=== PATIENT | male | born 1990 ===

== ENCOUNTER 2016-10-26 16:47 | Observation (INO) | payer BC ==
--- NOTE | 2016-10-26 17:21 | ED PDOC ---
HPI:STROKE - Time Time: 17:09 - Historian Historian: Patient - Chief Complaint Chief Complaint: Numbness - Onset Date: 10/26/16 Time: 07:00 (now approx 10hrs ago) - Timing Timing: Currently Symptomatic - Location Locate left: Upper extremity - Associated Symptoms Associated symptoms:: Palpitations - Exacerbated by Exacerbated by:: Nothing - Relieved by Relieved by:: Nothing - TPA Positive for Contraindication: Yes Reason tPA is not being Administered: symptoms ongoing 10+ hrs, only sensory symptoms currently - Notes: Notes:: 26yo male c/o numbness to left side of face/ head, left shoulder down to hand. Denies change in speech, vision, strength, coordination or headache. States did approx 1.5gm of cocaine overnight mixed with beer. NIHSS Stroke Scale - Date/Time Evaluation Performed Date Performed: 10/26/16 Time Performed: 17:01 When Was NIHSS Performed: Baseline - How Severe is the Stroke Level of Consciousness: 0=Alert LOC to Questions: 0=Both comments correct LOC to commands: 0=Obeys both correctly Best Gaze: 0=Normal Visual: 0=No visual loss Facial: 0=Normal Motor Arm - Left: 0=No drift Motor Arm - Right: 0=No drift Motor Leg - Left: 0=No drift Motor Leg - Right: 0=No drift Limb Ataxia: 0=Absent Sensory: 1=Mild to moderate loss Best Language: 0=No aphasia Dysarthia: 0=Normal articulation Extinction & Inattention (Neglect): 0=Normal, no object Score: 1 rTPA Inclusion/Exclusion - Refusal of Treatment Patient Refused Treatment: No - Inclusion Criteria for Altepase Patient is 18 years or Older: Yes The Clinical Diagnosis of Ischemic Stroke That is Causing a Potentially Disabling Neurological Deficit: Yes Time of Onset is Well Established to be Less Than 270 Minute Before Treatment Would Begin: No Risk/Benefit Discussed With Patient/Family Member Present: Yes - Warning to TPA With Conditions Following Conditions Weighed Against Anticipated Benefit: Yes Condition: Stroke Serevity Too Mild Past Medical History Reviewed: Historical Data, Nursing Documentation, Vital Signs Vital Signs: Last Vital Signs Temp 98.0 F 10/26/16 16:56 Pulse 88 10/26/16 16:56 Resp 26 H 10/26/16 16:56 BP 130/73 10/26/16 16:56 Pulse Ox 99 10/26/16 16:56 - Medical History PMH: No Chronic Diseases - Surgical History Surgical History: Hernia Repair Other surgeries: orthopedic procedures - Family History Family History: States: Unknown Family Hx - Living Arrangements Living Arrangements: With Family - Social History Current smoker - smoking cessation education provided: No Alcohol: Occasional Drugs: Cocaine (occassional) - Home Medications Home Medications: Ambulatory Orders Medication Instructions Recorded Rimforest-3 Fatty Acids [Fish Oil] 1 tab PO DAILY 10/26/16 Aspirin 325 mg PO DAILY #30 tab 10/27/16 - Allergies Allergies/Adverse Reactions: Allergies Allergy/AdvReac Type Severity Reaction Status Date / Time No Known Allergies Allergy Verified 06/14/16 06:50 Review of Systems ROS Statement: Except As Marked, All Systems Reviewed And Found Negative Constitutional: Negative for: Fever, Chills Cardiovascular: Positive for: Palpitations. Negative for: Chest Pain Respiratory: Negative for: Cough, Shortness of Breath Genitourinary Male: Negative for: Dysuria, Frequency Musculoskeletal: Negative for: Neck Pain, Shoulder Pain Skin: Negative for: Rash, Lesions Neurological: Positive for: Numbness, Dizziness. Negative for: Weakness, Confusion, Seizures, Headache Psych: Positive for: Anxiety. Negative for: Depression Physical Exam - Reviewed Nursing Documentation Reviewed: Yes Vital Signs Reviewed: Yes - Physical Exam Appears: Positive for: Well, Non-toxic, No Acute Distress Head Exam: Positive for: ATRAUMATIC, NORMAL INSPECTION, NORMOCEPHALIC Skin: Positive for: Normal Color, Warm, DRY Eye Exam: Positive for: EOMI, Normal appearance, PERRL Neck: Positive for: Normal, Painless ROM Cardiovascular/Chest: Positive for: Regular Rate, Rhythm. Negative for: Tachycardia Respiratory: Positive for: CNT, Normal Breath Sounds Pulses-Radial (L): 3+/4+ Pulses-Radial (R): 3+/4+ Gastrointestinal/Abdominal: Positive for: Bowel Sounds, Soft. 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 Negative for: Facial Droop - Laboratory Results Result Diagrams: 10/27/16 08:30 10/27/16 08:30 - ECG O2 Sat by Pulse Oximetry: 99 Medical Decision Making Medical Decision Making: Pt not candidate for code stroke as symptoms ongoing since 7am now 10+ hrs. CT report reviewed, no hemorrhage or abnormality Labs reviewed, +cocaine in Utox. Remains sinus rhythm. Given ativan for anxiolysis and cocaine antidote. ASA 325mg ordered. D/w Dr Brandon applications specialist neurology recommended Obs and will consult. Disposition - Clinical Impression Clinical Impression: Cocaine abuse, CVA (cerebral vascular accident) - Patient ED Disposition Is Patient to be Admitted: Yes Counseled Patient/Family Regarding: Studies Performed, Diagnosis, Need For Followup, Rx Given - Disposition Disposition: Routine/Home Disposition Time: 19:30 Condition: GOOD - Pt Status Changed To: Hospital Disposition Of: Observation
--- NOTE | 2016-10-26 17:36 | CT ---
PROCEDURE: CT HEAD WITHOUT CONTRAST. HISTORY: L arm numbness cocaine abuse COMPARISON: None available. TECHNIQUE: Axial computed tomography images were obtained through the head/brain without intravenous contrast. Radiation dose: Total exam DLP = 741 mGy-cm. This CT exam was performed using one or more of the following dose reduction techniques: Automated exposure control, adjustment of the mA and/or kV according to patient size, and/or use of iterative reconstruction technique. FINDINGS: HEMORRHAGE: No intracranial hemorrhage. BRAIN: No mass effect or edema. No atrophy or chronic microvascular ischemic changes. VENTRICLES: Unremarkable. No hydrocephalus. CALVARIUM: Unremarkable. PARANASAL SINUSES: Unremarkable as visualized. No significant inflammatory changes. MASTOID AIR CELLS: Unremarkable as visualized. No inflammatory changes. OTHER FINDINGS: None. IMPRESSION: Normal CT of the Head.
[2016-10-26 18:27] LABS: PARTIAL THROMBOPLASTIN TIME 26.4 SECONDS (23.3-32.5)
[2016-10-26 18:28] LABS: BASO % 0.3 % (0.0-2.0); EOS % 0.1 % (0.0-4.0); HEMATOCRIT 44.3 % (35.0-51.0); LYMPH # 1.9 K/uL (1.0-4.3); LYMPH % 15.8 % (20.0-40.0); MEAN CORPUSCULAR HEMOGLOBIN 29.9 pg (27.0-31.0); MEAN CORPUSCULAR HGB CONC 32.8 g/dL (33.0-37.0); MEAN PLATELET VOLUME 8.7 fl (7.2-11.7); MONO # 0.8 K/uL (0.0-0.8); MONO % 7.2 % (0.0-10.0); NEUT # 8.9 K/uL (1.8-7.0); NEUT % 76.6 % (50.0-75.0); RED CELL DISTRIBUTION WIDTH 13.4 % (11.5-14.5); WHITE BLOOD COUNT 11.7 K/uL (4.8-10.8)
[2016-10-26 18:29] LABS: ALB/GLOB RATIO 1.9 (1.0-2.1); ALCOHOL SERUM < 10 mg/dl (0-10); ALKALINE PHOSPHATASE 69 U/L (38-126); ALT/SGPT 56 U/L (21-72); AST/SGOT 49 U/L (17-59); BILIRUBIN,TOTAL 0.8 mg/dl (0.2-1.3); BLOOD UREA NITROGEN 9 mg/dl (9-20); CALCIUM 9.9 mg/dL (8.4-10.2); CARBON DIOXIDE 20 mmol/L (22-30); CHLORIDE 103 mmol/L (98-107); CHOLESTEROL 134 mg/dL (0-199); GFR AFRICAN-AMERICAN > 60; GLUCOSE,RANDOM 81 mg/dL (75-110); POTASSIUM 3.8 MMOL/L (3.6-5.0); SODIUM 138 mmol/l (132-148); TOTAL PROTEIN 7.5 G/DL (6.3-8.2)
[2016-10-26] MEDS ORDERED: Sodium Chloride 0.9% 1,000 ML IV STA (18:46)
--- NOTE | 2016-10-26 22:21 | RAD ---
HISTORY: L arm numbness COMPARISON: None available TECHNIQUE: Chest, one view. FINDINGS: LUNGS: No focal consolidation. Please note that chest x-ray has limited sensitivity for the detection of pulmonary masses. PLEURA: No significant pleural effusion identified. No definite pneumothorax . CARDIOVASCULAR: The cardiomediastinal silhouette appears within normal limits of size. OSSEOUS STRUCTURES: No acute osseous abnormality identified. VISUALIZED UPPER ABDOMEN: Unremarkable. OTHER FINDINGS: None. IMPRESSION: No focal consolidation, significant pleural effusion, or definite pneumothorax identified.
[2016-10-27] MEDS ORDERED: Enoxaparin 40 mg Syringe SC SCH (09:00)
[2016-10-27 09:17] LABS: MEAN CELL VOLUME 91.7 fl (80.0-94.0); MEAN CORPUSCULAR HEMOGLOBIN 30.5 pg (27.0-31.0); MEAN CORPUSCULAR HGB CONC 33.3 g/dL (33.0-37.0); RED CELL DISTRIBUTION WIDTH 13.2 % (11.5-14.5); WHITE BLOOD COUNT 6.8 K/uL (4.8-10.8)
[2016-10-27 09:41] LABS: ALKALINE PHOSPHATASE 56 U/L (38-126); ALT/SGPT 39 U/L (21-72); AST/SGOT 31 U/L (17-59); BILIRUBIN,TOTAL 0.7 mg/dl (0.2-1.3); BLOOD UREA NITROGEN 9 mg/dl (9-20); CALCIUM 8.9 mg/dL (8.4-10.2); CARBON DIOXIDE 25 mmol/L (22-30); CHLORIDE 108 mmol/L (98-107); CHOLESTEROL 95 mg/dL (0-199); GFR AFRICAN-AMERICAN > 60; GLUCOSE,RANDOM 104 mg/dL (75-110); POTASSIUM 4.4 MMOL/L (3.6-5.0); SODIUM 139 mmol/l (132-148); TOTAL PROTEIN 5.6 G/DL (6.3-8.2)
[2016-10-27 09:49] LABS: ALB/GLOB RATIO 1.5 (1.0-2.1)
[2016-10-27 09:56] LABS: T4 4.38 ug/dl (5.5-11.0)
[2016-10-27 10:10] LABS: THYROID STIMULATING HORMONE 1.43 mIU/ML (0.46-4.68)
--- NOTE | 2016-10-27 13:28 | CARD ---
APPROVED REPORT EKG Measurement Heart [id number] [id number] <Conclusion> Normal sinus rhythm Possible Left atrial enlargement Borderline ECG
--- NOTE | 2016-10-27 13:51 | CON ---
DATE: 10/27/2016 CHIEF COMPLAINT: Upper extremity numbness and palpitations. HISTORY OF PRESENT ILLNESS: This is a 26-year-old man with no significant past medical history excep t for a torn left shoulder, who presents to the hospital because of left upper extremity numbness and palpitations. Symptoms are going on more than 10 hours. No motor deficits and he admitted to doing 1.5 grams of cocaine overnight mixed with beer. He denies any change in sense of vision, taste or s amara, any weakness in the extremities or any headaches or any difficulty with coordination. He is wa lking around without any difficulty. His paresthesias are slightly reduced. He is on aspirin 81 mg p.o. daily. Case discussed with the father at bedside as well as the patient. 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 Neurological examination is intact except for subjective left upper extremity numb ness. PAST MEDICAL HISTORY: Left torn shoulder. SOCIAL HISTORY: Social ETOH use, history of cocaine use on 10/25/2016. FAMILY HISTORY: Noncontributory. ALLERGIES: No known drug allergies. MEDICATIONS: Reviewed via nurse's reconciliation sheet. LABORATORY DATA: U-tox is positive for cocaine. Chemistry: Sodium is 139, potassium 4, chloride of 108, carbon dioxide 25, BUN of 9, creatinine 0.9, random glucose 104. ASSESSMENT AND PLAN: This is a 26-year-old man with a history of a left torn shoulder, history of s teroid injections such as testosterone, came in with left upper extremity numbness, palpitations and admitted to using 1.5 grams of cocaine mixed with beer. His neurological exam is nonfocal. He denie s any headaches at this time. His left upper extremity subjective numbness is secondary to vasospasm from cocaine. At this time, he is neurologically intact. He can be discharged home on aspirin 325 mg p.o. daily and can follow up with me in 1 week. I advised on cocaine cessation, ETOH cessation as well as steroid injection cessation and to avoid any stimulants for 1-1/2 weeks. At this time, cont inue with current present medical management. Thank you for this consult. Shilo Brandon MD cc: [phone] TT: 10/27/2016 13:50:52 Confirmation # [id number] Dictation # [id number] tn
[2016-10-27 15:56] VITALS: BP 105/58; PULSE 73; RESP 16; TEMP 98
[2016-10-27 21:10] LABS: FOLATE 19.1 ng/mL
--- NOTE | 2016-10-29 07:35 | HP ---
The patient seen and examined. CHIEF COMPLAINT: Upper extremity numbness and palpitations. HISTORY OF PRESENT ILLNESS: This is a 26-year-old man without significant past medical history, who has a history of alcohol and cocaine abuse and was using cocaine yesterday and suddenly started feeli ng numbness and of the left upper extremity with palpitations. The patient was brought to the Emergency Room and was admitted for further management. REVIEW OF SYSTEMS: Positive for palpitations, numbness of the left upper extremity. Review of syste ms otherwise is negative for headache, dizziness, syncope, loss of consciousness, chest pain, shortne ss of breath, nausea, vomiting, diarrhea, constipation, any new joint or extremity pain. Review of s ystems of all other organ systems is unremarkable. PAST MEDICAL HISTORY: Is not significant. PAST SURGICAL HISTORY: Remarkable for left shoulder. PERSONAL HISTORY: The patient has history of alcohol and cocaine abuse. FAMILY HISTORY: Noncontributory. MEDICATIONS: The patient is not taking any medication other than [id number] supplements. ALLERGIES: The patient is not allergic to any medications. FAMILY HISTORY: Noncontributory. PHYSICAL EXAMINATION: GENERAL: Well-built, well-nourished 26-year-old male in no acute distress. VITAL SIGNS: Temperature 98, pulse 55, respirations 18, blood pressure 96/ . No orthostatic mikey nges. HEENT: Pupils reacting to light. No nystagmus. Normocephalic, atraumatic skull. NECK: No JVD, no thyromegaly, no lymphadenopathy. HEART: S1, S2 normal, regular. No significant murmur, gallop or rub is heard. LUNGS: Shows good bilateral air exchange. No rales or rhonchi. ABDOMEN: Soft, nontender, no organomegaly, no fluid. Bowel sounds are plus. EXTREMITIES: No edema, no calf swelling, no tenderness, no acute ischemia. CENTRAL NERVOUS SYSTEM: The patient is alert, awake, oriented x 3. There is no sign of any acute gr oss focal motor or sensory neurological deficits. DIAGNOSTIC DATA: Available diagnostic data reviewed. Telemetry monitoring does not reveal significa nt arrhythmias. WBC 6.8, hemoglobin 13.3, hematocrit 40.0, platelets 187. Sodium 139, potassium ___ __, chloride 108, bicarb 25. SMA-12 is essentially unremarkable. Urine toxicology is positive for c ocaine. Neurology consult noted and appreciated. CAT scan of head shows normal CAT scan. EKG is un remarkable. Chest x-ray is clear. ADMITTING IMPRESSION: Rule out cerebrovascular accident with cocaine abuse and alcohol abuse. PLAN: As ordered. Case and plan discussed with patient. The patient is medically stable to be disc harged. The patient was advised to follow up with family PCP and neurology. Plan is as asha marie Kingsley Asencio MD cc: [phone] TT: 10/27/2016 20:39:49 shan
[2016-11-07 15:19] VITALS: O2SAT 99
== END 2016-10-27 17:00 | disposition home or self-care (01) ==
LOC: H.ER 16:47 → H.ERHOLD 19:50 → H.TEL 21:14
PROVIDERS: ADMIT Internal Medicine; ATTEND Internal Medicine
DX: T40.5X1A Poisoning by cocaine, accidental (unintentional), initial encounter (principal); F10.10 Alcohol abuse, uncomplicated; F14.10 Cocaine abuse, uncomplicated; Y90.0 Blood alcohol level of less than 20 mg/100 ml; R20.0 Anesthesia of skin; R00.2 Palpitations
CPT/HCPCS: 36415; 70450; 71010; 80053; 80061; 82746; 82948; 83036; 84436; 84443; 84480; 84484; 85025; 85027; 85610; 85730; 86850; 86900; 93005; 96361; 96372; 96374; 99285; G0378; G0480; J1650; J2060; J7040

== ENCOUNTER 2017-06-28 07:12 | Observation (INO) | payer BC, OTHER ==
[2017-06-28] MEDS ORDERED: Sodium Chloride 0.9% 1,000 ML IV STA (07:38)
--- NOTE | 2017-06-28 07:45 | ED PDOC ---
HPI: SOB/CHF/COPD Time Seen by Provider: 06/28/17 07:34 Chief Complaint (Provider): Shortness of breath History Per: Patient History/Exam Limitations: no limitations Onset/Duration Of Symptoms: Hrs (this morning) Current Symptoms Are (Timing): Still Present Quality: Tightness Associated Symptoms: Other (left arm pain, and chest tightness) Additional Complaint(s): Azar Leahy is a 27 year old male, with no past medical history, who presents to the emergency department complaining of shortness of breath associated with chest tightness and left arm pain onset since this morning. Patient admits to doing cocaine last night as well as alcohol. Patient reports a similar event secondary to cocaine ingestion. He denies any suicidal or homicidal ideation. No further medical complaints. PMD: None provided. Past Medical History Reviewed: Historical Data, Nursing Documentation, Vital Signs Vital Signs: Last Vital Signs Temp 98.9 F 06/28/17 07:36 Pulse 117 H 06/28/17 07:36 Resp 18 06/28/17 07:48 BP 134/71 06/28/17 07:36 Pulse Ox 100 06/28/17 07:36 - Medical History PMH: No Chronic Diseases Denies: Chronic Kidney Disease - Surgical History Surgical History: Hernia Repair - Family History Family History: States: Unknown Family Hx - Social History Drugs: Cocaine - Allergies Allergies/Adverse Reactions: Allergies Allergy/AdvReac Type Severity Reaction Status Date / Time No Known Allergies Allergy Verified 06/14/16 06:50 Review of Systems ROS Statement: Except As Marked, All Systems Reviewed And Found Negative Cardiovascular: Positive for: Other (chest tightness) Respiratory: Positive for: Shortness of Breath Musculoskeletal: Positive for: Arm Pain (left) Psych: Negative for: Suicidal ideation (or homicidal ideation) Physical Exam - Reviewed Nursing Documentation Reviewed: Yes Vital Signs Reviewed: Yes - Physical Exam Head Exam: Positive for: ATRAUMATIC, NORMAL INSPECTION, NORMOCEPHALIC Skin: Positive for: Normal Color, Warm, Dry Eye Exam: Positive for: Normal appearance Neck: Positive for: Painless ROM Cardiovascular/Chest: Positive for: Tachycardia Respiratory: Positive for: Normal Breath Sounds (clear b/l). Negative for: Respiratory Distress Gastrointestinal/Abdominal: Positive for: Normal Exam, Soft. Negative for: Tenderness Extremity: Positive for: Normal ROM. Negative for: Tenderness, Deformity, Swelling Neurologic/Psych: Positive for: Alert, Oriented (x3). Negative for: Motor/ Sensory Deficits, Other (No focal deficits) - Laboratory Results Result Diagrams: 06/28/17 07:58 06/28/17 07:58 Medical Decision Making Medical Decision Making: Initial Plan: --EKG --Alcohol serum --Comp Metabolic Panel --Drug screen, urine --Troponin I --Urine dipstick --CBC w/ differential --Chest portable [RAD] --Aspirin 325 mg PO --Ativan 1 mg PO --Sodium Chloride 1,000 ml IV 100 mls/hr --reevaluation Scribe Attestation: Documented by Jorge Luis Tan, acting as a scribe for Adolfo Calderon MD Provider Scribe Attestation: All medical record entries made by the Scribe were at my direction and personally dictated by me. I have reviewed the chart and agree that the record accurately reflects my personal performance of the history, physical exam, medical decision making, and the department course for this patient. I have also personally directed, reviewed, and agree with the discharge instructions and disposition. Disposition - Clinical Impression Clinical Impression: Chest pain, Cocaine abuse - Patient ED Disposition Is Patient to be Admitted: Yes - Disposition Disposition Time: 08:42 Condition: FAIR - Pt Status Changed To: Hospital Disposition Of: Observation - POA Present On Arrival: None
[2017-06-28 08:09] LABS: BASO # 0.1 K/uL (0.0-0.2); BASO % 0.8 % (0.0-2.0); EOS % 0.1 % (0.0-4.0); HEMOGLOBIN 15.6 g/dL (12.0-18.0); LYMPH # 1.4 K/uL (1.0-4.3); LYMPH % 20.3 % (20.0-40.0); MEAN CELL VOLUME 86.9 fl (80.0-94.0); MEAN CORPUSCULAR HEMOGLOBIN 30.6 pg (27.0-31.0); MEAN CORPUSCULAR HGB CONC 35.2 g/dL (33.0-37.0); MEAN PLATELET VOLUME 9.2 fl (7.2-11.7); MONO # 0.4 K/uL (0.0-0.8); NEUT # 5.2 K/uL (1.8-7.0); NEUT % 73.8 % (50.0-75.0); RBC 5.11 Mil/uL (4.40-5.90); RED CELL DISTRIBUTION WIDTH 12.7 % (11.5-14.5)
[2017-06-28 08:15] LABS: ALB/GLOB RATIO 1.6 (1.0-2.1); ALBUMIN 4.9 g/dL (3.5-5.0); ALT/SGPT 39 U/L (21-72); AST/SGOT 28 U/L (17-59); BLOOD UREA NITROGEN 13 mg/dl (9-20); CALCIUM 10.2 mg/dL (8.4-10.2); GFR AFRICAN-AMERICAN > 60; GFR NON-AFRICAN AMERICAN > 60
[2017-06-28 10:01] LABS: BARBITURATES, UR NEGATIVE (NEGATIVE); BENZODIAZEPINES, UR NEGATIVE (NEGATIVE); OPIATES, UR NEGATIVE (NEGATIVE); PHENCYCLIDINE, UR NEGATIVE (NEGATIVE)
--- NOTE | 2017-06-28 11:08 | CP.PCM.CON ---
History of Present Illness - History of Present Illness History of Present Illness: 27 year old male, with no past medical history, who presents to the emergency department complaining of shortness of breath associated with chest numbness, no pain,since this morning after a night of drinking and snorting cocaine. Patient reports a similar event secondary to cocaine. EKG: normal Troponin: neg No PMH Past Patient History - Past Medical History & Family History Past Medical History?: Yes - Past Social History Drugs: Cocaine - CARDIAC Hx Cardiac Disorders: Yes Other/Comment: "leaky heart valve"as per pt's father - PULMONARY Hx Respiratory Disorders: No - NEUROLOGICAL Hx Neurological Disorder: No - HEENT Hx HEENT Problems: No - RENAL Hx Chronic Kidney Disease: No - ENDOCRINE/METABOLIC Hx Endocrine Disorders: No - HEMATOLOGICAL/ONCOLOGICAL Hx Blood Disorders: No - INTEGUMENTARY Hx Dermatological Problems: No - MUSCULOSKELETAL/RHEUMATOLOGICAL Hx Falls: No - GASTROINTESTINAL Hx Gastrointestinal Disorders: No - GENITOURINARY/GYNECOLOGICAL Hx Genitourinary Disorders: No - PSYCHIATRIC Hx Psychophysiologic Disorder: Yes Hx Substance Use: Yes - SURGICAL HISTORY Hx Surgeries: Yes Hx Herniorrhaphy: Yes Hx Musculoskeletal Surgery: Yes - ANESTHESIA Hx Anesthesia: Yes Hx Anesthesia Reactions: No Hx Malignant Hyperthermia: No Meds Allergies/Adverse Reactions: Allergies Allergy/AdvReac Type Severity Reaction Status Date / Time No Known Allergies Allergy Verified 06/14/16 06:50 - Medications Medications: Current Medications Sodium Chloride (Sodium Chloride 0.9%) 1,000 mls @ 100 mls/hr IV .Q10H STA Stop: 06/28/17 17:37 Last Admin: 06/28/17 07:51 Dose: 100 mls/hr Physical Exam - Constitutional Appears: Well - Head Exam Head Exam: NORMAL INSPECTION - Eye Exam Eye Exam: Normal appearance - ENT Exam ENT Exam: Normal Exam - Neck Exam Neck exam: Positive for: Normal Inspection - Respiratory Exam Respiratory Exam: NORMAL BREATHING PATTERN - Cardiovascular Exam Cardiovascular Exam: REGULAR RHYTHM - GI/Abdominal Exam GI & Abdominal Exam: Normal Bowel Sounds Results - Vital Signs Recent Vital Signs: Last Vital Signs Temp 98.4 F 06/28/17 09:08 Pulse 87 06/28/17 10:58 Resp 15 06/28/17 10:58 BP 110/61 06/28/17 10:58 Pulse Ox 99 06/28/17 10:58 - Labs Result Diagrams: 06/28/17 07:58 06/28/17 07:58 Labs: Laboratory Results - last 24 hr 06/28/17 06/28/17 06/28/17 07:58 07:58 09:13 WBC 7.0 RBC 5.11 Hgb 15.6 D Hct 44.4 MCV 86.9 D MCH 30.6 MCHC 35.2 RDW 12.7 Plt Count 195 MPV 9.2 Neut % (Auto) 73.8 Lymph % (Auto) 20.3 [place] % (Auto) 5.0 Eos % (Auto) 0.1 Baso % (Auto) 0.8 Neut # 5.2 Lymph # 1.4 [place] # 0.4 Eos # 0.0 Baso # 0.1 Sodium 142 Potassium 4.3 Chloride 103 Carbon Dioxide 21 L Anion Gap 22 H BUN 13 Creatinine 0.9 Est GFR ( Amer) > 60 Est GFR (Non-Af Amer) > 60 Random Glucose 118 H Calcium 10.2 Total Bilirubin 0.8 AST 28 ALT 39 Alkaline Phosphatase 87 Troponin I < 0.0120 Total Protein 7.9 Albumin 4.9 Globulin 3.0 Albumin/Globulin Ratio 1.6 Urine Opiates Screen Negative Urine Methadone Screen Negative Ur Barbiturates Screen Negative Ur Phencyclidine Scrn Negative Ur Amphetamines Screen Negative U Benzodiazepines Scrn Negative U Oth Cocaine Metabols Positive H U Cannabinoids Screen Negative Alcohol, Quantitative 62 H Assessment & Plan (1) Chest pain Assessment and Plan: Pt reports he did not have chest pain only numbness of his chest and shoulder all secondary to cocaine abuse pt may be discharged Status: Acute (2) Cocaine abuse Status: Acute
--- NOTE | 2017-06-28 11:19 | CARD ---
APPROVED REPORT EKG Measurement Heart [id number] <Conclusion> Sinus tachycardia Otherwise normal ECG
--- NOTE | 2017-06-28 12:00 | RAD ---
HISTORY: cough COMPARISON: Chest radiograph dated 10/26/2016. FINDINGS: LUNGS: No active pulmonary disease. PLEURA: No significant pleural effusion identified, no pneumothorax apparent. CARDIOVASCULAR: Normal. OSSEOUS STRUCTURES: No significant abnormalities. VISUALIZED UPPER ABDOMEN: Normal. OTHER FINDINGS: None. IMPRESSION: No active disease.
--- NOTE | 2017-06-28 13:31 | HP ---
HISTORY OF PRESENT ILLNESS: Mr. Leahy is a 27-year-old male who was admitted via the emergency room, complaining of chest pain, shortness of breath and numbness of the left side of the arm following alcohol and cocaine use. He had a similar episode once in the past. He presently is awake, alert, oriented. Denies any pain and feels better. PAST MEDICAL HISTORY: Apart from having similar episodes of chest pain in the past and numbness of the face is unremarkable. FAMILY HISTORY: Unremarkable. SOCIAL HISTORY: He does not smoke cigarettes, but uses cocaine and drinks alcohol. REVIEW OF SYSTEMS: Essentially unremarkable. PHYSICAL EXAMINATION: GENERAL: The patient is alert and oriented, appears to be comfortable at present. VITAL SIGNS: Blood pressure 110/61, pulse of 87, respiratory rate of 18 per minute, he is afebrile, O2 sat is 99% on room air. SKIN: Shows fair turgor. HEENT: Pupils equal and reactive to light and accommodation. Mouth shows fair hygiene. NECK: JVP flat. LUNGS: Clear. HEART: Regular. No murmurs or gallop. ABDOMEN: Soft, nontender. No organomegaly. EXTREMITIES: Show no edema or cyanosis. CENTRAL NERVOUS SYSTEM: Grossly intact. LABORATORY DATA: WBC 7.0, hemoglobin 15.6, platelet count 195,000. Sodium 142, potassium 4.3, BUN 13, creatinine 0.9, serum glucose 118. EKG, regular sinus rhythm. Troponin levels normal. Alcohol levels 62. The troponin is less than 0.012. IMPRESSION: Chest pains, probably secondary to cocaine use, alcohol use. PLAN: The patient advised alcohol abstinence. Plan will be to give him aspirin. Monitor on telemetry. Obtain cardiac enzymes x3 of 24-hour period. An EKG in the morning. Cardiac evaluation already completed. If clinically stable, we will discharge the patient in the a.m. Suraj Izaguirre MD
[2017-06-29 08:06] VITALS: BP 98/57; RESP 20; TEMP 97.9; O2SAT 99
--- NOTE | 2017-06-29 10:03 | CP.PCM.DIS ---
Provider - Provider Date of Admission: 06/28/17 07:41 Attending physician: Suraj Izaguirre MD Time Spent in preparation of Discharge (in minutes): 30 Diagnosis - Discharge Diagnosis (1) Alcohol abuse Status: Acute (2) Chest pain Status: Acute (3) Cocaine abuse Status: Acute Hospital Course - Lab Results Lab Results: Most Recent Lab Values WBC 7.0 K/uL (4.8-10.8) 06/28/17 07:58 RBC 5.11 Mil/uL (4.40-5.90) 06/28/17 07:58 Hgb 15.6 g/dL (12.0-18.0) D 06/28/17 07:58 Hct 44.4 % (35.0-51.0) 06/28/17 07:58 MCV 86.9 fl (80.0-94.0) D 06/28/17 07:58 MCH 30.6 pg (27.0-31.0) 06/28/17 07:58 MCHC 35.2 g/dL (33.0-37.0) 06/28/17 07:58 RDW 12.7 % (11.5-14.5) 06/28/17 07:58 Plt Count 195 K/uL (130-400) 06/28/17 07:58 MPV 9.2 fl (7.2-11.7) 06/28/17 07:58 Neut % (Auto) 73.8 % (50.0-75.0) 06/28/17 07:58 Lymph % (Auto) 20.3 % (20.0-40.0) 06/28/17 07:58 Posey % (Auto) 5.0 % (0.0-10.0) 06/28/17 07:58 Eos % (Auto) 0.1 % (0.0-4.0) 06/28/17 07:58 Baso % (Auto) 0.8 % (0.0-2.0) 06/28/17 07:58 Neut # 5.2 K/uL (1.8-7.0) 06/28/17 07:58 Lymph # 1.4 K/uL (1.0-4.3) 06/28/17 07:58 Posey # 0.4 K/uL (0.0-0.8) 06/28/17 07:58 Eos # 0.0 K/uL (0.0-0.7) 06/28/17 07:58 Baso # 0.1 K/uL (0.0-0.2) 06/28/17 07:58 Sodium 142 mmol/l (132-148) 06/28/17 07:58 Potassium 4.3 MMOL/L (3.6-5.0) 06/28/17 07:58 Chloride 103 mmol/L (98-107) 06/28/17 07:58 Carbon Dioxide 21 mmol/L (22-30) L 06/28/17 07:58 Anion Gap 22 (10-20) H 06/28/17 07:58 BUN 13 mg/dl (9-20) 06/28/17 07:58 Creatinine 0.9 mg/dl (0.8-1.5) 06/28/17 07:58 Est GFR ( Amer) > 60 06/28/17 07:58 Est GFR (Non-Af Amer) > 60 06/28/17 07:58 Random Glucose 118 mg/dL (75-110) H 06/28/17 07:58 Calcium 10.2 mg/dL (8.4-10.2) 06/28/17 07:58 Total Bilirubin 0.8 mg/dl (0.2-1.3) 06/28/17 07:58 AST 28 U/L (17-59) 06/28/17 07:58 ALT 39 U/L (21-72) 06/28/17 07:58 Alkaline Phosphatase 87 U/L (38-126) 06/28/17 07:58 Troponin I < 0.0120 ng/mL (0.00-0.120) 06/28/17 14:53 Total Protein 7.9 G/DL (6.3-8.2) 06/28/17 07:58 Albumin 4.9 g/dL (3.5-5.0) 06/28/17 07:58 Globulin 3.0 gm/dL (2.2-3.9) 06/28/17 07:58 Albumin/Globulin Ratio 1.6 (1.0-2.1) 06/28/17 07:58 Urine Opiates Screen Negative (NEGATIVE) 06/28/17 09:13 Urine Methadone Screen Negative (NEGATIVE) 06/28/17 09:13 Ur Barbiturates Screen Negative (NEGATIVE) 06/28/17 09:13 Ur Phencyclidine Scrn Negative (NEGATIVE) 06/28/17 09:13 Ur Amphetamines Screen Negative (NEGATIVE) 06/28/17 09:13 U Benzodiazepines Scrn Negative (NEGATIVE) 06/28/17 09:13 U Oth Cocaine Metabols Positive (NEGATIVE) H 06/28/17 09:13 U Cannabinoids Screen Negative (NEGATIVE) 06/28/17 09:13 Alcohol, Quantitative 62 mg/dl (0-10) H 06/28/17 07:58 - Hospital Course Hospital Course: CHEST PAIN RESOLVED NO APPARENT DISTRESS EKG-SINUS SHAY WITH EARLY REPOLARIZATION Discharge Exam - Head Exam Head Exam: NORMAL INSPECTION - Eye Exam Eye Exam: EOMI, Normal appearance, PERRL Pupil Exam: NORMAL ACCOMODATION, PERRL - GI/Abdominal Exam GI & Abdominal Exam: Normal Bowel Sounds - Rectal Exam Rectal Exam: NORMAL INSPECTION - Neurological Exam Neurological exam: Alert, CN II-XII Intact, Normal Gait, Oriented x3, Reflexes Normal - Psychiatric Exam Psychiatric exam: Normal Affect, Normal Mood - Skin Skin Exam: Dry, Intact, Normal Color, Warm Discharge Plan - Follow Up Plan Condition: FAIR Disposition: HOME/ ROUTINE Patient education suggested?: Yes Additional Instructions: DISCHARGE TODAY ADVISED DRUG/ETOH ABSTINENCE FOLLOW UP WITH PMD
[2017-06-29 10:51] VITALS: PULSE 58
--- NOTE | 2017-06-29 19:27 | CARD ---
APPROVED REPORT EKG Measurement Heart [id number] <Conclusion> Sinus bradycardia Early repolarization Otherwise normal ECG
== END 2017-06-29 14:38 | disposition home or self-care (01) ==
LOC: H.ER 07:12 → H.ERHOLD 07:41 → H.TEL 11:49
PROVIDERS: ADMIT Internal Medicine Pulmonary Disease; ATTEND Internal Medicine Pulmonary Disease
DX: R07.89 Other chest pain (principal); F14.10 Cocaine abuse, uncomplicated; F10.129 Alcohol abuse with intoxication, unspecified; Y90.3 Blood alcohol level of 60-79 mg/100 ml
CPT/HCPCS: 71045; 80053; 84484; 85025; 93005; 99285; G0378; G0480; J7040